=== PATIENT | male | born 1950 | race Caucasian/White ===

== ENCOUNTER → 2016-07-22 | Outpatient (CLI) | payer MEDICARE, BC ==
[2016-07-22 08:26] LABS: CHLORIDE,CL 104 mmol/L (98-110); SODIUM,NA 139 mmol/L (136-146)
== END ==
LOC: MW.CHFP 07:34
PROVIDERS: ATTEND Emergency Medicine
DX: M54.5 Low back pain (principal); E11.9 Type 2 diabetes mellitus without complications; I10 Essential (primary) hypertension; E78.00 Pure hypercholesterolemia, unspecified; Z12.5 Encounter for screening for malignant neoplasm of prostate; K76.0 Fatty (change of) liver, not elsewhere classified; G89.29 Other chronic pain; K21.9 Gastro-esophageal reflux disease without esophagitis
CPT/HCPCS: 36415; 80048; 80061; 83036; 84450; 84460; G0103; 99214

== ENCOUNTER → 2016-08-03 | Outpatient (CLI) | payer MEDICARE, BC | LOC: MW.CHIM 08:00 | PROVIDERS: ATTEND Internal Medicine | DX: I73.9 Peripheral vascular disease, unspecified (principal); I10 Essential (primary) hypertension; E78.00 Pure hypercholesterolemia, unspecified; R73.03 Prediabetes | CPT/HCPCS: 99214 ==

== ENCOUNTER → 2016-08-05 | Outpatient (CLI) | payer MEDICARE, BC | LOC: MW.CHPM 08:00 | PROVIDERS: ATTEND Anesthesiology | DX: M48.06 Spinal stenosis, lumbar region (principal); M54.5 Low back pain; G89.29 Other chronic pain; M79.1 Myalgia; S32.010A Wedge compression fracture of first lumbar vertebra, initial encounter for closed fracture | CPT/HCPCS: 20553; 99204; J0702 ==

== ENCOUNTER 2020-12-18 09:51 | Day surgery (SDC) | payer MEDICARE, BC ==
[~2020-12-18 09:51] MED LIST: Glycopyrrolate 0.2 MG/ML SDV ONE; Lactated Ringers 1,000 ML IV SCH; Lidocaine 2% 5 ML SDV ONE; Midazolam 1 MG/ML 2 ML SDV ONE; Naloxone 0.4 MG/ML SDV ONE; Propofol 200 MG/20 ML SDV ONE
[2020-12-18] MEDS ORDERED: Sodium Chloride 0.9% 20 ML ONE (10:15)
[2020-12-18] MEDS ORDERED: cefOXitin 1 GM Vial ONE ×2 (10:15)
--- NOTE | 2020-12-18 10:16 | PCM.PREANE ---
Preanesthetic Assessment - Procedure Proposed Procedure: EGD/ Colonoscopy - Anesthesia/Transfusion/Family Hx Anesthesia History: Prior Anesthesia Without Reaction Family History of Anesthesia Reaction: No Transfusion History: No Prior Transfusion(s) - Review of Systems General: No Symptoms Pulmonary: No Symptoms (Wuit smoking 2001) Cardiovascular: No Symptoms (CAD, s/p CABG 2001, Valvular dz s/p OAo valve repl 1.5 yrs ago, HTN, HLD) Gastrointestinal: No Symptoms (GERD well controlled) Neurological: No Symptoms Other: Reports: Diabetes (NIDDM on metformin), Thyroid Problems (Hypothyroid) - Physical Assessment NPO Status Date: 12/17/20 NPO Status Time: 07:30 (Solids, >8 hrs Liq) Vital Signs: Last Vital Signs Temp 97.0 F 12/18/20 09:57 Pulse 57 L 12/18/20 09:57 Resp 15 12/18/20 09:57 BP 166/85 H 12/18/20 09:57 Pulse Ox 96 12/18/20 09:57 Height: 5 ft 5 in Weight: 90.718 kg (Obesity) ASA Class: 3 Mental Status: Alert & Oriented x3 Airway Class: Mallampati = 2 Dentition: Reports: Missing Tooth/Teeth Thyro-Mental Finger Breadths: 3 Mouth Opening Finger Breadths: 3 ROM/Head Extension: Full Lungs: Clear to Auscultation, Normal Respiratory Effort Cardiovascular: Regular Rate, Regular Rhythm - Allergies Allergies/Adverse Reactions: Allergies Allergy/AdvReac Type Severity Reaction Status Date / Time Penicillins Allergy Hives Verified 12/12/20 09:20 Sulfa (Sulfonamide Allergy Itching Verified 12/12/20 09:20 Antibiotics) - Anesthesia Plan Beta Moiz: Atenolol Med Last Dose Date: 12/18/20 Med Last Dose Time: 06:30 - Acknowledgements Anesthesia Type Planned: General Anesthesia Pt an Appropriate Candidate for the Planned Anesthesia: Yes Alternatives and Risks of Anesthesia Discussed w Pt/Guardian: Yes Pt/Guardian Understands and Agrees with Anesthesia Plan: Yes PreAnesthesia Questionnaire HEENT History: Reports: Other (See Below) Other HEENT History: reading glasses Cardiovascular History: Reports: CAD, High Cholesterol, Hypertension, PVD Respiratory History: Reports: None Gastrointestinal History: Reports: Colon Polyp, GERD Genitourinary History: Reports: None Musculoskeletal History: Reports: Back Pain, Chronic, Gout, Other (See Below) Other Musculoskeletal History: Spinal Stenosis Neurological History: Reports: None Psychiatric History: Reports: None Endocrine/Metabolic History: Reports: Hypothyroidism, Obesity/BMI 30+, Other (See Below) Other Endocrine/Metabolic History: prediabetic Hematologic History: Reports: Anticoagulation Therapy Immunologic History: Reports: None Oncologic (Cancer) History: Reports: None Dermatologic History: Reports: None - Past Surgical History Head Surgeries/Procedures: Reports: None HEENT Surgical History: Reports: None Cardiovascular Surgical History: Reports: Coronary Artery Bypass, Coronary Artery Stent, Valve Replacement, Vascular Surgery Other Cardiovascular Surgeries/Procedures: CABG 2016, transcatheter aortic valve replacement, CIARA femerol-popliteal initial stenosis with stent Respiratory Surgical History: Reports: None GI Surgical History: Reports: Colonoscopy Male Surgical History: Reports: None Endocrine Surgical History: Reports: None Neurological Surgical History: Reports: None Musculoskeletal Surgical History: Reports: None Oncologic Surgical History: Reports: None Dermatological Surgical History: Reports: None - SUBSTANCE USE Tobacco Use Status *Q: Former Tobacco User Tobacco Use Within Last Twelve Months: No Days Per Week of Alcohol Use: 7 Number of Drinks Per Day: 3 Total Drinks Per Week: 21 Recreational Drug Use History: No - HOME MEDS Home Medications: Home Meds Allopurinol [Zyloprim] 300 mg PO DAILY 11/22/15 [History] Aspirin [Halfprin] 81 mg PO DAILY 11/22/15 [History] Clopidogrel Bisulfate [Clopidogrel] 75 mg PO DAILY 11/22/15 [History] Ergocalciferol (Vitamin D2) [Vitamin D] 400 units PO DAILY 11/22/15 [History] Fish Oil/Borage/Flax/Om3,6,9 1 [[place] 3-6-9 1,200 mg Softgel] 1 cap PO DAILY 11/22/15 [History] Furosemide 40 mg PO DAILY 11/22/15 [History] Levothyroxine Sodium [Synthroid] 75 mcg PO DAILY 11/22/15 [History] Omeprazole 20 mg PO DAILY PRN 11/22/15 [History] Ramipril 10 mg PO BID 11/22/15 [History] Ubidecarenone [Co Q-10] 200 mg PO DAILY 11/22/15 [History] amLODIPine Besylate [Amlodipine Besylate] 10 mg PO ACBREAKFAST 11/22/15 [History] atenoloL [Atenolol] 100 mg PO BID 11/22/15 [History] atorvaSTATin Calcium [Atorvastatin Calcium] 40 mg PO DAILY 11/22/15 [History] Ascorbic Acid [Vitamin C] 500 mg PO DAILY 12/12/20 [History] metFORMIN HCl [Metformin HCl] 1,000 mg PO WITHDINNER 12/12/20 [History] - CURRENT (IN HOUSE) MEDS Current Meds: Current Medications Lactated Ringer's (Ringers, Lactated) 1,000 mls @ 125 mls/hr IV ASDIRECTED [facility] Last Admin: 12/18/20 10:12 Dose: 125 mls/hr Documented by: Discontinued Medications Glycopyrrolate (Glycopyrrolate 0.2 Mg/Ml Sdv) Confirm Administered Dose 0.2 mg .ROUTE .STK-MED ONE Stop: 12/18/20 09:04 Lidocaine (Lidocaine 2% 5 Ml Sdv) Confirm Administered Dose 5 ml .ROUTE .STK-MED ONE Stop: 12/18/20 09:04 Midazolam HCl (Midazolam 1 Mg/Ml 2 Ml Sdv) Confirm Administered Dose 2 mg .ROUTE .STK-MED ONE Stop: 12/18/20 09:03 Naloxone HCl (Naloxone 0.4 Mg/Ml Sdv) Confirm Administered Dose 0.4 mg .ROUTE .STK-MED ONE Stop: 12/18/20 09:18 Propofol (Propofol 200 Mg/20 Ml Sdv) Confirm Administered Dose 600 mg .ROUTE .STK-MED ONE Stop: 12/18/20 09:03
--- NOTE | 2020-12-18 10:54 | PCM.OPNOTE ---
- General Post-Op/Procedure Note Date of Surgery/Procedure: 12/18/20 Operative Procedure(s): colonoscopy and polypectomy Findings: Hemorrhoids Colon polyps 60 and 50cm dictation number #[id number] Pre Op Diagnosis: history of colon polyps Post-Op Diagnosis: Hemorrhoids. Colon polyps 60cm and 50cm Anesthesia Technique: MAC Primary Surgeon: Nam Martin Pathology: colon polyps Complications: None Condition: Good
--- NOTE | 2020-12-18 10:57 | PCM.POSTAN ---
POST ANESTHESIA ASSESSMENT - MENTAL STATUS Mental Status: Alert, Oriented - VITAL SIGNS Vital Signs: Last Vital Signs Temp 97.0 F 12/18/20 09:57 Pulse 57 L 12/18/20 09:57 Resp 15 12/18/20 09:57 BP 166/85 H 12/18/20 09:57 Pulse Ox 96 12/18/20 09:57 - RESPIRATORY Respiratory Status: Respiratory Rate WNL, Airway Patent, O2 Saturation Stable - CARDIOVASCULAR CV Status: Pulse Rate WNL, Blood Pressure Stable - GASTROINTESTINAL GI Status: No Symptoms - POST OP HYDRATION Hydration Status: Adequate & Stable
--- NOTE | 2020-12-18 11:11 | PCM48HPAN ---
Post Anesthesia Note - EVALUATION WITHIN 48HRS OF ANESTHETIC Vital Signs in Normal Range: Yes Patient Participated in Evaluation: Yes Respiratory Function Stable: Yes Airway Patent: Yes Cardiovascular Function Stable: Yes Hydration Status Stable: Yes Pain Control Satisfactory: Yes Nausea and Vomiting Control Satisfactory: Yes Mental Status Recovered: Yes Vital Signs: Last Vital Signs Temp 97.0 F 12/18/20 09:57 Pulse 57 L 12/18/20 09:57 Resp 15 12/18/20 09:57 BP 166/85 H 12/18/20 09:57 Pulse Ox 96 12/18/20 09:57 - COMMENTS/OBSERVATIONS Free Text/Narrative:: Pt doing well post-op. VSS. No apparent anesthetic complications. Dr. Bay Dick
[2020-12-18 11:26] VITALS: BP 163/71; PULSE 53
--- NOTE | 2020-12-18 18:23 | OR ---
SURGEON: MOON ADAIR MD DATE OF PROCEDURE: 12/18/2020 PREOPERATIVE DIAGNOSIS: History of colon polyps. POSTOPERATIVE DIAGNOSES: 1. Colon polyps at 60 and 50 cm. 2. Hemorrhoids. PROCEDURE PERFORMED: Colonoscopy and hot snare polypectomy. PRIMARY SURGEON: Moon Adair MD ANESTHESIA: With Anesthesiology. EXTENT OF THE COLONOSCOPY: To the cecum. BOWEL PREP: Very good. COMPLICATIONS: None. REASON FOR PROCEDURE: The patient is a pleasant 70-year-old gentleman whose last colonoscopy was 5 years ago. He has had polyps removed. He says occasionally he has some blood in stool, but says this was because of his hemorrhoids. Denies any family history of colon cancer. PROCEDURE IN DETAIL: Physical exam was performed and the risks and benefits associated with the procedure were explained to the patient in detail. The patient verbalized understanding of the same. The patient was then connected to appropriate monitoring device and IV started. EKG, pulse oximetry, blood pressure, and capnography were monitored throughout the procedure. Continuous oxygen and sedation were provided by the anesthesiologist. The patient was placed in left lateral decubitus position. Sedation began. After adequate sedation was achieved, a digital rectal exam was performed. The patient did have a larger external hemorrhoid, non bleeding. Olympus colonoscope was inserted into the rectum and advanced under direct visualization to the level of the cecum. The cecum was identified by both visual and anatomic landmarks. Photographs were taken of the cecal cap. The patient had a very good bowel prep, but did have a little bit of liquid stool mainly in the cecum and ascending colon. This was suctioned and irrigated out for a good look at the mucosa. The scope was then slowly withdrawn, again, doing some suction and irrigation for good look at the mucosa. The patient did have a smaller polyp right about 60 cm. This is likely just in the transverse of the splenic flexure and was removed with hot snare polypectomy. There was good hemostasis. Scope was continued to be withdrawn just past the splenic flexure and descending colon, at 50 cm there was another slightly larger polyp. This was again removed with hot snare polypectomy and appeared to be completely removed. This one I did do Resolution clip to close mucosal defect. Scope was continued to be withdrawn. The scope was switched to the rectum. Did again have internal hemorrhoids, noninflamed. Scope was completely removed, and the procedure was terminated. ENDOSCOPIC DIAGNOSES: 1. Hemorrhoids. 2. Colon polyps at 60 and 50 cm. RECOMMENDATIONS: Followup colonoscopy will depend on the pathology, most likely another one in 5 years, sooner if he develops signs and symptoms or change in bowel habits or blood in stool. TAMMY JOHN /[id number]
== END 2020-12-18 11:45 | disposition home or self-care (01) ==
LOC: MW.SDS 09:51
PROVIDERS: ATTEND Surgery
DX: D12.3 Benign neoplasm of transverse colon (principal); D12.4 Benign neoplasm of descending colon; K64.4 Residual hemorrhoidal skin tags; I25.10 Atherosclerotic heart disease of native coronary artery without angina pectoris; K21.9 Gastro-esophageal reflux disease without esophagitis; I10 Essential (primary) hypertension; E78.00 Pure hypercholesterolemia, unspecified; E03.9 Hypothyroidism, unspecified; E11.9 Type 2 diabetes mellitus without complications; E66.9 Obesity, unspecified; Z98.890 Other specified postprocedural states; Z88.0 Allergy status to penicillin; Z88.2 Allergy status to sulfonamides; Z79.899 Other long term (current) drug therapy; Z79.82 Long term (current) use of aspirin; Z79.890 Hormone replacement therapy; Z79.84 Long term (current) use of oral hypoglycemic drugs; Z87.891 Personal history of nicotine dependence
CPT/HCPCS: 45385; 88305; J0694; J2250; J2310; J2704; J7120; 00812; 99100; J3490

== ENCOUNTER 2024-02-25 10:03 | Day surgery (SDC) | payer MEDICARE, BC ==
[2024-02-25] MEDS ORDERED: propofoL 500 MG/50 ML 50 ML ONE (10:26)
[2024-02-25] MEDS ORDERED: Lidocaine 2% 5 ML SDV ONE (10:28)
[2024-02-25] MEDS: Lactated Ringers 1,000 ML IV SCH (10:45)
[2024-02-25] MEDS ORDERED: ePHEDrine 50 MG/ML SDV ONE (12:30)
[2024-02-25 14:56] VITALS: BP 136/65; PULSE 53
== END 2024-02-25 13:23 | disposition home or self-care (01) ==
LOC: MW.SDS 10:03
PROVIDERS: ATTEND Surgery
DX: D12.2 Benign neoplasm of ascending colon (principal); K31.7 Polyp of stomach and duodenum; K31.89 Other diseases of stomach and duodenum; K31.A0 Gastric intestinal metaplasia, unspecified; K44.9 Diaphragmatic hernia without obstruction or gangrene; K57.30 Diverticulosis of large intestine without perforation or abscess without bleeding; K64.9 Unspecified hemorrhoids; K21.9 Gastro-esophageal reflux disease without esophagitis; I10 Essential (primary) hypertension; E11.51 Type 2 diabetes mellitus with diabetic peripheral angiopathy without gangrene; E78.00 Pure hypercholesterolemia, unspecified; E03.9 Hypothyroidism, unspecified; I25.10 Atherosclerotic heart disease of native coronary artery without angina pectoris; Z95.5 Presence of coronary angioplasty implant and graft; F17.210 Nicotine dependence, cigarettes, uncomplicated; Z79.890 Hormone replacement therapy; Z79.84 Long term (current) use of oral hypoglycemic drugs; Z79.82 Long term (current) use of aspirin; Z79.899 Other long term (current) drug therapy
CPT/HCPCS: 43239; 45380; 88305; J2704; J7120; 00813; 99100; J3490